=== PATIENT | male | born 1955 | race Caucasian/White ===

== ENCOUNTER 2016-12-03 11:38 | Outpatient (CLI) | payer BC ==
[2016-12-03 12:29] LABS: BASOPHILS % (AUTO) 0.5 %; EOSINOPHILS # (AUTO) 0.1 10^3/uL (0.0-0.7); EOSINOPHILS % (AUTO) 0.8 %; HCT - HEMATOCRIT 44.1 % (42.0-52.0); HGB - HEMOGLOBIN 14.5 g/dL (14.0-18.0); LYMPHOCYTES # (AUTO) 1.3 10^3/uL (1.5-3.5); LYMPHOCYTES % (AUTO) 12.9 %; MEAN CORPUSCULAR HEMOGLOBIN 27.9 pg (27.0-31.0); MEAN CORPUSCULAR HGB CONC 32.9 g/dL (32.0-36.0); MEAN CORPUSCULAR VOLUME 84.9 fL (80.0-94.0); MEAN PLATELET VOLUME 7.1 fL (7.4-11.4); MONOCYTES # (AUTO) 0.8 10^3/uL (0.0-1.0); MONOCYTES % (AUTO) 8.1 %; NEUTROPHILS # (AUTO) 7.9 10^3/uL (1.5-6.6); NEUTROPHILS % (AUTO) 77.7 %; NUCLEATED RED BLOOD CELLS AUTO 0.1 /100WBC; RED BLOOD COUNT 5.19 10^6/uL (4.70-6.10); RED CELL DISTRIBUTION WIDTH 20.4 % (12.0-15.0); UNCORRECTED WHITE BLOOD COUNT 10.1 x10^3/uL; WHITE BLOOD COUNT 10.1 x10^3/uL (4.8-10.8)
[2016-12-03 12:33] LABS: PLATELET ESTIMATE, MANUAL NORMAL (130-450,000) (NORMAL); PLATELET MORPHOLOGY NORMAL APPEARANCE (NORMAL)
[2016-12-03 12:42] LABS: ALBUMIN/GLOBULIN RATIO 1.3 (1.0-2.2); BILIRUBIN,TOTAL 0.6 mg/dL (0.2-1.0); BUN - BLOOD UREA NITROGEN 13 mg/dL (6-20); CALCIUM 9.1 mg/dL (8.5-10.3); CARBON DIOXIDE - CO2 22 mmol/L (21-32); CHLORIDE 105 mmol/L (101-111); CHOL/HDL RATIO 3.2 (<5.0); CHOLESTEROL 139 mg/dL; CREATININE 1.2 mg/dL (0.6-1.2); GFR - MDRD 62 (>89); GLUCOSE 101 mg/dL (70-100); HDL CHOLESTEROL 43 mg/dL; LDL/HDL RATIO 0.4 (<3.6); POTASSIUM 4.6 mmol/L (3.5-5.0); SODIUM 136 mmol/L (135-145); TOTAL PROTEIN 6.5 g/dL (6.7-8.2); TRIGLYCERIDES 397 mg/dL; VLDL CHOLESTEROL 79 mg/dL
== END 2016-12-03 11:39 | disposition home or self-care (01) ==
LOC: LAB 11:38
PROVIDERS: ATTEND Family Medicine
DX: Z87.438 Personal history of other diseases of male genital organs (principal); E78.5 Hyperlipidemia, unspecified; I51.9 Heart disease, unspecified; K70.0 Alcoholic fatty liver; Z11.59 Encounter for screening for other viral diseases
CPT/HCPCS: 36415; 80053; 80061; 84153; 85025; 86803

== ENCOUNTER 2017-12-24 21:55 | Emergency (ER) | payer BC ==
[2017-12-24] MEDS ORDERED: SODIUM CHLORIDE 0.9% 1,000 ML IV ONE (22:20)
[2017-12-24 22:33] LABS: BASOPHILS % (AUTO) 1.2 %; EOSINOPHILS % (AUTO) 1.3 %; HGB - HEMOGLOBIN 14.3 g/dL (14.0-18.0); MEAN CORPUSCULAR HEMOGLOBIN 29.2 pg (27.0-31.0); MEAN CORPUSCULAR HGB CONC 33.6 g/dL (32.0-36.0); MEAN PLATELET VOLUME 7.4 fL (7.4-11.4); MONOCYTES % (AUTO) 11.1 %; NEUTROPHILS % (AUTO) 55.4 %; PLT - PLATELET COUNT 170 10^3/uL (130-450); RED BLOOD COUNT 4.88 10^6/uL (4.70-6.10); RED CELL DISTRIBUTION WIDTH 18.5 % (12.0-15.0); WHITE BLOOD COUNT 4.7 x10^3/uL (4.8-10.8)
[2017-12-24 22:43] LABS: ABNORMAL LYMPHS % (MANUAL) 0 %; BAND NEUTROPHILS % (MANUAL) 0 %
[2017-12-24] MEDS ORDERED: ACETAMINOPHEN 500 MG TABLET PO STA (22:45)
[2017-12-24 22:54] LABS: ALBUMIN 3.5 g/dL (3.2-5.5); ALBUMIN/GLOBULIN RATIO 1.3 (1.0-2.2); BILIRUBIN,TOTAL 0.8 mg/dL (0.2-1.0); CALCIUM 8.6 mg/dL (8.5-10.3); CREATININE 1.3 mg/dL (0.6-1.2); MAGNESIUM 1.9 mg/dL (1.7-2.8); TOTAL PROTEIN 6.2 g/dL (6.7-8.2)
[2017-12-24 23:06] LABS: EOSINOPHILS # (MANUAL) 0.1 10^3/uL (0-0.7); LYMPHOCYTES # (MANUAL) 1.6 10^3/uL (1.5-3.5); LYMPHOCYTES % (MANUAL) 33 %; MONOCYTES # (MANUAL) 0.3 10^3/uL (0.0-1.0); NEUTROPHILS # (MANUAL) 2.7 10^3/uL (1.5-6.6); NEUTROPHILS % (MANUAL) 58 %
[2017-12-24 23:07] LABS: DIFFERENTIAL COMMENT MANUAL DIFFERENTIAL; PLATELET ESTIMATE, MANUAL NORMAL (130-450,000) (NORMAL); PLATELET MORPHOLOGY NORMAL APPEARANCE (NORMAL)
--- NOTE | 2017-12-24 23:17 | CT Report ---
Procedure Date: 12/24/2017 Accession Number: [id number] / [id number] Procedure: CT - Head W/O CPT Code: FULL RESULT: EXAM: CT HEAD EXAM DATE: 12/24/2017 10:16 PM. CLINICAL HISTORY: Fall, head injury, pt takes eliquis. COMPARISON: Prior head CT 04/21/2016. TECHNIQUE: Multiaxial CT images were obtained from the foramen magnum to the vertex. Reformats: Sagittal and coronal. IV contrast: None. In accordance with CT protocol optimization, one or more of the following dose reduction techniques were utilized for this exam: automated exposure control, adjustment of mA and/or KV based on patient size, or use of iterative reconstructive technique. FINDINGS: Parenchyma: No intraparenchymal hemorrhage. No evidence of mass, midline shift, or CT findings of infarction. Baker-white differentiation is distinct. Extraaxial Spaces: Normal for age. No subdural or epidural collections identified. Ventricles: Normal in size and position. Sinuses and Orbits: Imaged paranasal sinuses, orbits, and mastoids show no significant abnormality. Bones: No evidence of fracture or calvarial defect. Other: None. IMPRESSION: Normal head CT. RADIA
--- NOTE | 2017-12-25 00:32 | ED Physician Documentation ---
PD HPI SYNCOPE - Stated complaint Stated Complaint: LIGHTHEADED - Chief complaint Chief Complaint: Neuro - History obtained from History obtained from: Patient, Family - History of Present Illness Witnessed: Witnessed Timing - onset: Today Duration: Seconds Preceding symptoms: None Associated symptoms: Headache. No: Seizure, Incontinant of urine, Incontinant of stool, Vision changes, Chest pain Injury occurred: Fell, Head injury Similar symptoms before: Work up / diagnostics, Treatment Recently seen: Not recently seen - Additional information Additional information: patient is a 62 year old male with a history of copd, cad A fib and frequent syncopal episodes who is presenting to the emergency department after having a syncopal episode. patient states that he had just finished dinner and was walking back to the kitchen when he passed out. Patient fell hitting his head ( he is on elequis). Daughter states that the was out for maybe 15 seconds. patient states that currently he has a headache but denies any other complaints. Review of Systems Ten Systems: 10 systems reviewed and negative Constitutional: denies: Fever, Chills Eyes: denies: Decreased vision, Photophobia Cardiac: denies: Chest pain / pressure, Palpitations, Pedal edema Respiratory: reports: Wheezing. denies: Dyspnea, Cough GI: denies: Nausea, Vomiting Neurologic: reports: Syncope, Headache, LOC Immunocompromised: denies: Immunocompromised PD PAST MEDICAL HISTORY - Past Medical History Past Medical History: Yes Cardiovascular: Hypertension, Coronary artery disease, Atrial fibrillation, Other Respiratory: Other Endocrine/Autoimmune: None GI: GI bleed, Colon polyps, Hemorrhoids, Other : Nocturia, Other HEENT: None, Other Psych: Depression, Other Musculoskeletal: None Derm: None - Past Surgical History Past Surgical History: Yes General: Colonoscopy, EGD Ortho: Carpal Tunnel surgery Cardiovascular: Coronary stent - Present Medications Home Medications: Ambulatory Orders Medication Instructions Recorded Confirmed Atorvastatin [Lipitor] 20 mg PO DAILY 04/21/15 04/22/16 Omeprazole [PriLOSEC] 40 mg PO DAILY 04/21/15 04/22/16 Tamsulosin [Flomax] 0.4 mg PO DAILY 04/21/15 04/22/16 Venlafaxine HCl [Effexor Xr] 150 mg PO DAILY 04/21/15 04/22/16 Aspirin [Aspirin EC] 162 mg PO DAILY 04/22/16 04/22/16 Metoprolol Tartrate 25 mg PO BID 04/22/16 04/22/16 Zolpidem Tartrate [Zolpidem 12.5 mg PO QPM 04/22/16 04/22/16 Tartrate ER] clonazePAM [Klonopin] 1 mg PO BID 04/22/16 04/22/16 oxyCODONE [Roxicodone] 5 mg PO QID 04/22/16 04/22/16 risperiDONE [Risperdal] 2 mg PO DAILY 04/22/16 04/22/16 Zolpidem [Ambien] 10 mg PO QPM tablet 04/23/16 clonazePAM [KlonoPIN] 1 mg PO BID tablet 04/23/16 - Allergies Allergies/Adverse Reactions: Allergies Allergy/AdvReac Type Severity Reaction Status Date / Time niacin Allergy Anaphylaxis Verified 01/01/16 00:18 ibuprofen AdvReac Unknown Verified 01/01/16 00:18 - Social History Does the pt smoke?: Yes Smoking Status: Current every day smoker Does the pt drink ETOH?: Yes ETOH Use: Beer Does the pt have substance abuse?: No - Immunizations Immunizations are current?: Yes - POLST Patient has POLST: No PD ED PE NORMAL - Vitals Vital signs reviewed: Yes - General General: Alert and oriented X 3, No acute distress - HEENT HEENT: PERRL, Moist mucous membranes - Neck Neck: Supple, no meningeal sign, No bony TTP - Respiratory Respiratory: No respiratory distress - Abdomen Abdomen: Soft, Non tender, Non distended - Derm Derm: Normal color, Warm and dry - Extremities Extremities: No deformity, No edema, No calf tenderness / cord - Neuro Neuro: Alert and oriented X 3, c architect 2-12 intact, No motor deficit, No sensory deficit, Normal speech Eye Opening: Spontaneous Motor: Obeys Commands Verbal: Oriented GCS Score: 15 PD ED PE EXPANDED - Cardiac Cardiac: Irregularly irregular Results - Vitals Vitals: Vital Signs - 24 hr 12/24/17 12/24/17 12/24/17 22:03 22:24 22:36 Temperature 35.9 C L Heart Rate 95 98 96 Respiratory 18 20 23 Rate Blood Pressure 109/69 128/80 111/68 O2 Saturation 98 97 96 12/24/17 12/24/17 12/24/17 22:53 23:19 23:39 Temperature Heart Rate 103 H 88 100 Respiratory 23 24 21 Rate Blood Pressure 110/62 138/70 H 125/62 O2 Saturation 97 97 97 12/24/17 12/25/17 23:59 00:36 Temperature 36.7 C Heart Rate 89 91 Respiratory 23 16 Rate Blood Pressure 130/62 124/63 O2 Saturation 96 97 Oxygen O2 Source Room air - EKG (time done) 2206 Rate: Rate (enter#) (111) Rhythm: Atrial fibrillation [place]: Normal Intervals: Normal NM QRS: Normal Compare to prior EKG: Changed from prior EKG - Labs Labs: Laboratory Tests 12/24/17 12/24/17 12/24/17 22:20 22:20 22:20 WBC 4.7 L RBC 4.88 Hgb 14.3 Hct 42.5 MCV 87.0 MCH 29.2 MCHC 33.6 RDW 18.5 H Plt Count 170 MPV 7.4 Neut # (Auto) Not Reportable Lymph # (Auto) Not Reportable [place] # (Auto) Not Reportable Eos # (Auto) Not Reportable Baso # (Auto) Not Reportable Absolute Nucleated RBC Not Reportable Total Counted 100 Band Neuts % (Manual) 0 Abnorm Lymph % (Manual) 0 Nucleated RBC % Not Reportable Neutrophils # (Manual) 2.7 Lymphocytes # (Manual) 1.6 Monocytes # (Manual) 0.3 Eosinophils # (Manual) 0.1 Basophils # (Manual) 0.0 Differential Comment MANUAL DIFFERENTIAL Platelet Estimate NORMAL (130-450,000) Platelet Morphology NORMAL APPEARANCE RBC Morph Micro Appear 2+ POIKILOCYTOSIS Sodium 134 L Potassium 3.7 Chloride 102 Carbon Dioxide 18 L Anion Gap 14.0 H BUN 13 Creatinine 1.3 H Estimated GFR (MDRD) 56 L Glucose 143 H Calcium 8.6 Phosphorus 2.0 L Magnesium 1.9 Total Bilirubin 0.8 AST 26 ALT 16 Alkaline Phosphatase 56 Troponin I < 0.04 Total Protein 6.2 L Albumin 3.5 Globulin 2.7 Albumin/Globulin Ratio 1.3 Lipase 53 H 12/25/17 00:00 WBC RBC Hgb Hct MCV MCH MCHC RDW Plt Count MPV Neut # (Auto) Lymph # (Auto) [place] # (Auto) Eos # (Auto) Baso # (Auto) Absolute Nucleated RBC Total Counted Band Neuts % (Manual) Abnorm Lymph % (Manual) Nucleated RBC % Neutrophils # (Manual) Lymphocytes # (Manual) Monocytes # (Manual) Eosinophils # (Manual) Basophils # (Manual) Differential Comment Platelet Estimate Platelet Morphology RBC Morph Micro Appear Sodium Potassium Chloride Carbon Dioxide Anion Gap BUN Creatinine Estimated GFR (MDRD) Glucose Calcium Phosphorus Magnesium Total Bilirubin AST ALT Alkaline Phosphatase Troponin I < 0.04 Total Protein Albumin Globulin Albumin/Globulin Ratio Lipase - Rads (name of study) ct head Radiology: Final report received (no acute abnormality) PD MEDICAL DECISION MAKING - ED course Complexity details: reviewed old records, reviewed results, re-evaluated patient , considered differential, d/w patient ED course: Patient was seen and examined at bedside. ekg was performed and showed a fib. patient was placed on a monitor. labs were drawn and imaging was ordered. Patient was treated with tylenol for his headache. patient's heart rate varied but was mainly near 80bpm. When patient returned from imaging results were reviewed. there were no acute abnormalities. Patient's other diagnostics were within normal limits. Patient remained asymptomatic while in the emergency department. Patient required no further work up and was stable for discharge with outpatient follow up. - Sepsis Event Vital Signs: Vital Signs - 24 hr 12/24/17 12/24/17 12/24/17 22:03 22:24 22:36 Temperature 35.9 C L Heart Rate 95 98 96 Respiratory 18 20 23 Rate Blood Pressure 109/69 128/80 111/68 O2 Saturation 98 97 96 12/24/17 12/24/17 12/24/17 22:53 23:19 23:39 Temperature Heart Rate 103 H 88 100 Respiratory 23 24 21 Rate Blood Pressure 110/62 138/70 H 125/62 O2 Saturation 97 97 97 12/24/17 12/25/17 23:59 00:36 Temperature 36.7 C Heart Rate 89 91 Respiratory 23 16 Rate Blood Pressure 130/62 124/63 O2 Saturation 96 97 Oxygen O2 Source Room air Departure - Departure Disposition: 01 Home, Self Care Clinical Impression: Syncope and collapse Condition: Good Instructions: ED Fainting Unkn Cause Follow-Up: Dionisio Ashby MD [Primary Care Provider] - Comments: Your diagnostics today were within normal limits. there were no significant abnormalities appreciated. You should follow up with your doctor if your symptoms persist. You may return to the emergency department at any time for new, worsening or uncontrollable symptoms. Discharge Date/Time: 12/25/17 00:48
[2017-12-25 00:37] VITALS: BP 124/63
== END 2017-12-25 00:48 | disposition home or self-care (01) ==
LOC: ED 21:55
DX: R55 Syncope and collapse (principal); J44.9 Chronic obstructive pulmonary disease, unspecified; I25.10 Atherosclerotic heart disease of native coronary artery without angina pectoris; I48.91 Unspecified atrial fibrillation; I11.9 Hypertensive heart disease without heart failure; F17.200 Nicotine dependence, unspecified, uncomplicated; Z79.01 Long term (current) use of anticoagulants
CPT/HCPCS: 36415; 70450; 80053; 83690; 83735; 84100; 84484; 85025; 93005; 96360; 99284; 99285; A9270

== ENCOUNTER 2018-01-24 11:16 | Outpatient (CLI) | payer BC ==
[2018-01-24 16:43] LABS: CHOL/HDL RATIO 4.6 (<5.0); CHOLESTEROL 161 mg/dL; HDL CHOLESTEROL 35 mg/dL
[2018-01-24 17:14] LABS: LDL CHOLESTEROL,DIRECT 56 mg/dL; LDLD/HDL RATIO 1.6 (<3.6)
== END 2018-01-24 11:17 | disposition home or self-care (01) ==
LOC: LAB.R 11:16
PROVIDERS: ATTEND Internal Medicine
DX: E78.5 Hyperlipidemia, unspecified (principal)
CPT/HCPCS: 80061; 83721

== ENCOUNTER 2018-02-02 13:37 | Outpatient (CLI) | payer BC | END 2018-02-02 13:38 | disposition home or self-care (01) | LOC: RT 13:37 | PROVIDERS: ATTEND Internal Medicine Cardiovascular Disease | DX: I48.91 Unspecified atrial fibrillation (principal) | CPT/HCPCS: 93005 ==

== ENCOUNTER 2018-02-27 14:36 | Emergency (ER) | payer BC ==
[2018-02-27 14:45] VITALS: BP 114/61
[2018-02-27] MEDS ORDERED: oxyCODONE 5 MG TABLET PO STA (15:04)
--- NOTE | 2018-02-27 15:07 | ED Physician Documentation ---
PD HPI LOWER EXT INJURY - Stated complaint Stated Complaint: L FT PX - Chief complaint Chief Complaint: Ext Problem - History obtained from History obtained from: Patient, Family - History of Present Illness PD HPI LOW EXT INJURY LOCATION: Left (Couple of weeks ago he had pain in the plantar fascia and was walking funny. That went away but now has pain across the top medial side of the foot that is especially bad when he starts lifting his foot with each step. No increase in activities or injury.) Review of Systems Constitutional: denies: Fever, Chills GI: denies: Abdominal Pain, Nausea, Vomiting Musculoskeletal: reports: Back pain (Chronic). denies: Neck pain PD PAST MEDICAL HISTORY - Past Medical History Past Medical History: No Cardiovascular: Hypertension, Coronary artery disease, Atrial fibrillation, Oth er Respiratory: Other Endocrine/Autoimmune: None GI: GI bleed, Colon polyps, Hemorrhoids, Other : Nocturia, Other HEENT: None, Other Psych: Depression, Other Musculoskeletal: None Derm: None - Past Surgical History Past Surgical History: Yes General: Colonoscopy, EGD Ortho: Carpal Tunnel surgery Cardiovascular: Coronary stent - Present Medications Home Medications: Ambulatory Orders Medication Instructions Recorded Confirmed Atorvastatin [Lipitor] 20 mg PO DAILY 04/21/15 04/22/16 Omeprazole [PriLOSEC] 40 mg PO DAILY 04/21/15 04/22/16 Tamsulosin [Flomax] 0.4 mg PO DAILY 04/21/15 04/22/16 Venlafaxine HCl [Effexor Xr] 150 mg PO DAILY 04/21/15 04/22/16 Aspirin [Aspirin EC] 162 mg PO DAILY 04/22/16 04/22/16 Metoprolol Tartrate 25 mg PO BID 04/22/16 04/22/16 Zolpidem Tartrate [Zolpidem 12.5 mg PO QPM 04/22/16 04/22/16 Tartrate ER] clonazePAM [Klonopin] 1 mg PO BID 04/22/16 04/22/16 oxyCODONE [Roxicodone] 5 mg PO QID 04/22/16 04/22/16 risperiDONE [Risperdal] 2 mg PO DAILY 04/22/16 04/22/16 Zolpidem [Ambien] 10 mg PO QPM tablet 04/23/16 clonazePAM [KlonoPIN] 1 mg PO BID tablet 04/23/16 Morphine Ir [Ms Ir] 15 mg PO Q6H PRN #15 tablet 02/27/18 predniSONE [Prednisone] 60 mg PO DAILY 5 Days #15 tablet 02/27/18 - Allergies Allergies/Adverse Reactions: Allergies Allergy/AdvReac Type Severity Reaction Status Date / Time niacin Allergy Anaphylaxis Verified 02/27/18 14:45 ibuprofen AdvReac Unknown Verified 02/27/18 14:45 - Social History Does the pt smoke?: Yes Smoking Status: Current every day smoker Does the pt drink ETOH?: Yes Does the pt have substance abuse?: No - Immunizations Immunizations are current?: Yes - POLST Patient has POLST: No PD ED PE NORMAL - Vitals Vital signs reviewed: Yes - General General: Alert and oriented X 3, No acute distress - Extremities Extremities: Other (Left foot is without tenderness of the plantar fascia at this time, he says though that a couple of weeks ago palpating his plantar fascia would have been very tender. He is tender over the top of the foot which tracks the FHL tendon and has severe pain with flexion of the big toe but not with extension of the big toe.) - Neuro Neuro: Alert and oriented X 3, Normal speech Results - Vitals Vitals: Vital Signs - 24 hr 02/27/18 14:42 Temperature 35.9 C L Heart Rate 86 Respiratory 16 Rate Blood Pressure 114/61 O2 Saturation 99 Oxygen O2 Source Room air PD MEDICAL DECISION MAKING - ED course ED course: 62-year-old gentleman with reactive FHL tendinitis of the left foot. He is p laced in a boot and given a small prescription of morphine. And prednisone noting that he cannot take anti-inflammatories because of chronic renal insufficiency. Departure - Departure Disposition: 01 Home, Self Care Clinical Impression: Flexor hallucis longus tendinitis Condition: Good Record reviewed to determine appropriate education?: Yes Instructions: ED Tendinitis Calcific Prescriptions: Morphine Ir [Ms Ir] 15 mg PO Q6H PRN #15 tablet PRN Reason: Pain predniSONE [Prednisone] 60 mg PO DAILY 5 Days #15 tablet Comments: Call Dr. garcia's office and let him know that you were here and that we did give you a prescription. Return for new or worsening symptoms.
== END 2018-02-27 15:27 | disposition home or self-care (01) ==
LOC: ED 14:36
DX: M77.52 Other enthesopathy of left foot and ankle (principal); I12.9 Hypertensive chronic kidney disease with stage 1 through stage 4 chronic kidney disease, or unspecified chronic kidney disease; N18.9 Chronic kidney disease, unspecified; I25.10 Atherosclerotic heart disease of native coronary artery without angina pectoris; F17.200 Nicotine dependence, unspecified, uncomplicated; Z95.5 Presence of coronary angioplasty implant and graft; Z79.82 Long term (current) use of aspirin
CPT/HCPCS: 99283; A9270

== ENCOUNTER 2018-04-09 18:46 | Emergency (ER) | payer BC ==
[2018-04-09 18:53] VITALS: BP 104/51
--- NOTE | 2018-04-09 19:10 | ED Physician Documentation ---
PD HPI LOWER EXT INJURY - Stated complaint Stated Complaint: BILAT FEET PX - Chief complaint Chief Complaint: Ext Problem - History obtained from History obtained from: Patient - History of Present Illness PD HPI LOW EXT INJURY LOCATION: Right, Left, Toe (great toe base, also dorsum right foot.) Type of injury: No: Fall, Twist Timing - onset: How many days ago (2 days of pain without obvious injury) Timing - duration: Days (2) Timing - details: Gradual onset, Still present Improved by: No: Rest Worsened by: Moving, Palpating Associated symptoms: Discolored (redness at base great toes). No: Weakness, Numbness Similar symptoms before: No diagnosis (has had similar at times in the past, lasting few days at a time, at great toes. Has not had both feet hurt and is worse than other times.) Recently seen: Not recently seen Review of Systems Constitutional: denies: Fever, Chills Nose: denies: Rhinorrhea / runny nose, Congestion Throat: denies: Sore throat Respiratory: denies: Cough Skin: denies: Abrasion (s), Laceration (s) Neurologic: denies: Focal weakness, Numbness PD PAST MEDICAL HISTORY - Past Medical History Cardiovascular: Hypertension, Coronary artery disease, Atrial fibrillation, Other Respiratory: Other Endocrine/Autoimmune: None GI: GI bleed, Colon polyps, Hemorrhoids, Other : Nocturia, Other HEENT: None, Other Psych: Depression, Other Musculoskeletal: None Derm: None - Past Surgical History Past Surgical History: Yes General: Colonoscopy, EGD Ortho: Carpal Tunnel surgery Cardiovascular: Coronary stent - Present Medications Home Medications: Ambulatory Orders Medication Instructions Recorded Confirmed Atorvastatin [Lipitor] 20 mg PO DAILY 04/21/15 04/22/16 Omeprazole [PriLOSEC] 40 mg PO DAILY 04/21/15 04/22/16 Tamsulosin [Flomax] 0.4 mg PO DAILY 04/21/15 04/22/16 Venlafaxine HCl [Effexor Xr] 150 mg PO DAILY 04/21/15 04/22/16 Aspirin [Aspirin EC] 162 mg PO DAILY 04/22/16 04/22/16 Metoprolol Tartrate 25 mg PO BID 04/22/16 04/22/16 Zolpidem Tartrate [Zolpidem 12.5 mg PO QPM 04/22/16 04/22/16 Tartrate ER] clonazePAM [Klonopin] 1 mg PO BID 04/22/16 04/22/16 oxyCODONE [Roxicodone] 5 mg PO QID 04/22/16 04/22/16 risperiDONE [Risperdal] 2 mg PO DAILY 04/22/16 04/22/16 Zolpidem [Ambien] 10 mg PO QPM tablet 04/23/16 clonazePAM [KlonoPIN] 1 mg PO BID tablet 04/23/16 Morphine Ir [Ms Ir] 15 mg PO Q6H PRN #15 tablet 02/27/18 predniSONE [Prednisone] 60 mg PO DAILY 5 Days #15 tablet 02/27/18 Colchicine [Colcrys] 0.6 mg PO BID #10 tablet 04/09/18 Dexamethasone [Decadron] 4 mg PO DAILY #5 tablet 04/09/18 - Allergies Allergies/Adverse Reactions: Allergies Allergy/AdvReac Type Severity Reaction Status Date / Time niacin Allergy Anaphylaxis Verified 04/09/18 18:50 ibuprofen AdvReac Unknown Verified 04/09/18 18:50 - Social History Does the pt smoke?: Yes Smoking Status: Current every day smoker Does the pt drink ETOH?: Yes Does the pt have substance abuse?: No - Immunizations Immunizations are current?: Yes - POLST Patient has POLST: No PD ED PE NORMAL - Vitals Vital signs reviewed: Yes - General General: Alert and oriented X 3, No acute distress, Well developed/nourished - Cardiac Cardiac: RRR, No murmur - Respiratory Respiratory: Clear bilaterally - Abdomen Abdomen: Soft, Non tender - Derm Derm: Warm and dry. No: Normal color (both great toe MTPs medially with redness and marked pain. Bit more swelling right. Dorsum right foot with tenderness and mild redness as well. No skin sores. ) Results - Vitals Vitals: Oxygen O2 Source Room air PD MEDICAL DECISION MAKING - ED course Complexity details: considered differential (pain with redness both great toes MTPs and dorsum right foot. C/W gout.), d/w patient Departure - Departure Disposition: 01 Home, Self Care Clinical Impression: Pain in both feet Gout attack Qualifiers: Gout site: toe Gout etiology: unspecified cause Laterality: unspecified laterality Qualified Code(s): M10.9 - Gout, unspecified Condition: Stable Record reviewed to determine appropriate education?: Yes Instructions: ED Arthritis Gout Follow-Up: Dionisio Ashby MD [Primary Care Provider] - Prescriptions: Colchicine [Colcrys] 0.6 mg PO BID #10 tablet Dexamethasone [Decadron] 4 mg PO DAILY #5 tablet Comments: This sounds like a gout episode. We would treat this with anti-inflammatories anti-gout medicine and pain medicine. Continue your usual pain medication. Add Decadron steroid anti-inflammatory for 5 more days. Colchicine is a gout medication and helps with the inflammation and crystals. Use it twice daily for 5 days as well. This should improve over the next 1-2 days. Subsequently follow-up with Dr. Ashby as there is potentially medication to take daily to head off the episodes, since you have had a few of these in the past. Discharge Date/Time: 04/09/18 20:55
[2018-04-09] MEDS ORDERED: HYDROmorphone 2 MG/ML VIAL IM STA (19:45)
[2018-04-09] MEDS ORDERED: COLCHICINE 0.6 MG TABLET PO STA (19:45)
[2018-04-09] MEDS ORDERED: DEXAMETHASONE 10 MG/ML VIAL PO STA (19:45)
[2018-04-09] MEDS: KETOROLAC 15 MG/ML VIAL IVP STA ×2 (20:20→20:24)
[2018-04-09] MEDS ORDERED: KETOROLAC 15 MG/ML VIAL IM STA (20:20)
== END 2018-04-09 20:55 | disposition home or self-care (01) ==
LOC: ED 18:46
DX: M10.9 Gout, unspecified (principal); I10 Essential (primary) hypertension; I25.10 Atherosclerotic heart disease of native coronary artery without angina pectoris; Z86.79 Personal history of other diseases of the circulatory system; Z95.5 Presence of coronary angioplasty implant and graft; F17.200 Nicotine dependence, unspecified, uncomplicated
CPT/HCPCS: 96372; 99281; 99283; A9270; J1170

== ENCOUNTER 2018-05-13 19:30 | Outpatient (CLI) | payer BC | END 2018-05-13 23:59 | disposition home or self-care (01) | LOC: SC 19:30 | PROVIDERS: ATTEND Internal Medicine Pulmonary Disease | DX: G47.33 Obstructive sleep apnea (adult) (pediatric) (principal) | CPT/HCPCS: 95806 ==

== ENCOUNTER 2018-06-06 08:00 | Outpatient (CLI) | payer BC ==
[2018-06-06 17:16] LABS: BASOPHILS # (AUTO) 0.1 10^3/uL (0.0-0.1); BASOPHILS % (AUTO) 0.9 %; EOSINOPHILS # (AUTO) 0.1 10^3/uL (0.0-0.7); EOSINOPHILS % (AUTO) 0.8 %; HGB - HEMOGLOBIN 14.7 g/dL (14.0-18.0); LYMPHOCYTES # (AUTO) 1.4 10^3/uL (1.5-3.5); LYMPHOCYTES % (AUTO) 20.5 %; MEAN CORPUSCULAR HEMOGLOBIN 28.8 pg (27.0-31.0); MEAN CORPUSCULAR HGB CONC 32.2 g/dL (32.0-36.0); MEAN CORPUSCULAR VOLUME 89.4 fL (80.0-94.0); MEAN PLATELET VOLUME 7.6 fL (7.4-11.4); MONOCYTES # (AUTO) 0.4 10^3/uL (0.0-1.0); MONOCYTES % (AUTO) 6.2 %; NEUTROPHILS # (AUTO) 4.9 10^3/uL (1.5-6.6); NEUTROPHILS % (AUTO) 71.6 %; PLT - PLATELET COUNT 158 10^3/uL (130-450); RED BLOOD COUNT 5.11 10^6/uL (4.70-6.10); RED CELL DISTRIBUTION WIDTH 18.7 % (12.0-15.0); WHITE BLOOD COUNT 6.9 x10^3/uL (4.8-10.8)
== END 2018-06-06 23:59 | disposition home or self-care (01) ==
LOC: LAB.R 08:00
PROVIDERS: ATTEND Internal Medicine
DX: D64.9 Anemia, unspecified (principal)
CPT/HCPCS: 85025

== ENCOUNTER 2018-06-12 18:08 | Emergency (ER) | payer BC ==
[2018-06-12 18:37] VITALS: BP 110/70
[2018-06-12] MEDS ORDERED: MORPHINE IR 15 MG TABLET PO STA (19:21)
[2018-06-12] MEDS ORDERED: predniSONE 20 MG TABLET PO STA (19:22)
--- NOTE | 2018-06-12 19:25 | ED Physician Documentation ---
History of Present Illness - Stated complaint Stated Complaint: NK PX - Chief complaint Chief Complaint: General - History obtained from History obtained from: Patient, Family - History of Present Illness Timing: How many days ago (2) Pain level max: 9 Pain level now: 9 - Additonal information Additional information: R sided neck pain and R great toe pain. Patient states that he has ongoing right-sided neck pain after waking up with a spasm in his neck a few days ago. Took Flexeril without relief. Is on oxycodone at home but continuing to have breakthrough pain. Is unable to take NSAIDs secondary to only having one kidney. He also states that his right great toe is swollen, has had gout in this toe before. Feels similar to that. The neck is better with rest and worse with movement. At the toe is also better with rest and worse with movement Review of Systems Constitutional: denies: Fever, Chills Nose: denies: Rhinorrhea / runny nose, Congestion Throat: denies: Sore throat Cardiac: denies: Chest pain / pressure GI: denies: Vomiting, Diarrhea Skin: denies: Rash Musculoskeletal: denies: Back pain Neurologic: denies: Focal weakness, Numbness, Confused, Headache, Head injury PD PAST MEDICAL HISTORY - Past Medical History Past Medical History: Yes Cardiovascular: Hypertension, Coronary artery disease, Atrial fibrillation, Other Respiratory: None Neuro: CVA Endocrine/Autoimmune: None GI: GI bleed, Colon polyps, Hemorrhoids, Other : Nocturia, Other HEENT: None, Other Psych: Depression, Anxiety Musculoskeletal: None Derm: None - Past Surgical History Past Surgical History: Yes General: Colonoscopy, EGD, Other Ortho: Other Cardiovascular: Coronary stent - Present Medications Home Medications: Ambulatory Orders Medication Instructions Recorded Confirmed Atorvastatin [Lipitor] 20 mg PO DAILY 04/21/15 04/22/16 Omeprazole [PriLOSEC] 40 mg PO DAILY 04/21/15 04/22/16 Tamsulosin [Flomax] 0.4 mg PO DAILY 04/21/15 04/22/16 Venlafaxine HCl [Effexor Xr] 150 mg PO DAILY 04/21/15 04/22/16 Aspirin [Aspirin EC] 162 mg PO DAILY 04/22/16 04/22/16 Metoprolol Tartrate 25 mg PO BID 04/22/16 04/22/16 Zolpidem Tartrate [Zolpidem 12.5 mg PO QPM 04/22/16 04/22/16 Tartrate ER] clonazePAM [Klonopin] 1 mg PO BID 04/22/16 04/22/16 oxyCODONE [Roxicodone] 5 mg PO QID 04/22/16 04/22/16 risperiDONE [Risperdal] 2 mg PO DAILY 04/22/16 04/22/16 Zolpidem [Ambien] 10 mg PO QPM tablet 04/23/16 clonazePAM [KlonoPIN] 1 mg PO BID tablet 04/23/16 Morphine Ir [Ms Ir] 15 mg PO Q6H PRN #15 tablet 02/27/18 predniSONE [Prednisone] 60 mg PO DAILY 5 Days #15 tablet 02/27/18 Colchicine [Colcrys] 0.6 mg PO BID #10 tablet 04/09/18 Dexamethasone [Decadron] 4 mg PO DAILY #5 tablet 04/09/18 Methocarbamol [Robaxin] 500 mg PO Q8H PRN #10 tablet 06/12/18 Morphine Ir [Ms Ir] 15 mg PO Q6H PRN #10 tablet 06/12/18 predniSONE [Prednisone] 40 mg PO DAILY #10 tablet 06/12/18 - Allergies Allergies/Adverse Reactions: Allergies Allergy/AdvReac Type Severity Reaction Status Date / Time niacin Allergy Anaphylaxis Verified 06/12/18 18:37 ibuprofen AdvReac Unknown Verified 06/12/18 18:37 - Social History Does the pt smoke?: Yes Smoking Status: Current every day smoker Does the pt drink ETOH?: Yes ETOH Use: Beer Does the pt have substance abuse?: No - Immunizations Immunizations are current?: Yes - POLST Patient has POLST: No PD ED PE NORMAL - Vitals Vital signs reviewed: Yes - General General: Alert and oriented X 3, No acute distress, Well developed/nourished - HEENT HEENT: PERRL, Moist mucous membranes - Neck Neck: Supple, no meningeal sign, No bony TTP, No bruit, Other (Tender to palpation right paracervical, spasm present. Reproduces pain) - Cardiac Cardiac: RRR, Strong equal pulses - Respiratory Respiratory: No respiratory distress, Clear bilaterally - Back Back: No spinal TTP - Derm Derm: Warm and dry - Extremities Extremities: Other (Right great toe - Mild erythema and swelling to the first MTP joint. Pain with range of motion. Neurovascular intact) - Neuro Neuro: Alert and oriented X 3 - Psych Psych: Normal mood, Normal affect Results - Vitals Vitals: Vital Signs - 24 hr 06/12/18 18:31 Temperature 36.2 C L Heart Rate 61 Respiratory 16 Rate Blood Pressure 110/70 O2 Saturation 97 Oxygen O2 Source Room air PD MEDICAL DECISION MAKING - ED course Complexity details: reviewed results, re-evaluated patient, considered differential, d/w patient, d/w family ED course: 63-year-old male presents the emergency department with what appears to be an acute gout flare of the right foot. Will place on prednisone for this as he cannot take NSAIDs. Also has spasm in his neck, will place on pain medication and muscle relaxants for home. He is well-appearing, nontoxic. Afebrile. No evidence of meningitis, carotid dissection. Patient counseled regarding signs and symptoms for which I believe and urgent re-evaluation would be necessary. Patient with good understanding of and agreement to plan and is comfortable going home at this time This document was made in part using voice recognition software. While efforts are made to proofread this document, sound alike and grammatical errors may occur. Departure - Departure Disposition: 01 Home, Self Care Clinical Impression: Neck muscle spasm Gout attack Qualifiers: Gout site: toe Gout etiology: unspecified cause Laterality: right Qualified Code(s): M10.9 - Gout, unspecified Condition: Good Instructions: ED Arthritis Gout, ED Spasm Neck No Injury, ED Diet Gout Follow-Up: Dionisio Ashby MD [Primary Care Provider] - Within 1 week Prescriptions: Methocarbamol [Robaxin] 500 mg PO Q8H PRN #10 tablet PRN Reason: spasm Morphine Ir [Ms Ir] 15 mg PO Q6H PRN #10 tablet PRN Reason: neck pain predniSONE [Prednisone] 40 mg PO DAILY #10 tablet Comments: Take medications as prescribed. Return if you worsen. This should improve over the next few days. Follow-up with your doctor for further care. Do not drink alcohol or drive while on narcotic pain medicine. Note that many narcotic pain relievers also contain tylenol/acetaminophen. Please ensure that your total dose of acetaminophen from all sources does not exceed 3 grams (3000mg) per day. You may constipated on this medication, take a stool softener such as "Colace" twice a day while you are on it. Also recommend a [id number] laxative such as senna or MiraLAX any day that you do not have a bowel movement. If you received narcotic pain medication in the emergency department, do not drive or operate machinery for the next 24 hours. This document was made in part using voice recognition software. While efforts are made to proofread this document, sound alike and grammatical errors may occur. Discharge Date/Time: 06/12/18 19:32
== END 2018-06-12 19:32 | disposition home or self-care (01) ==
LOC: ED 18:08
DX: M62.838 Other muscle spasm (principal); M54.2 Cervicalgia; M10.9 Gout, unspecified; I10 Essential (primary) hypertension; F17.200 Nicotine dependence, unspecified, uncomplicated; Z79.82 Long term (current) use of aspirin
CPT/HCPCS: 99283; A9270; J7512

== ENCOUNTER 2018-07-04 12:58 | Outpatient (CLI) | payer BC | END 2018-07-04 12:59 | disposition home or self-care (01) | LOC: SC 12:58 | PROVIDERS: ATTEND Internal Medicine Pulmonary Disease | DX: G47.33 Obstructive sleep apnea (adult) (pediatric) (principal) | CPT/HCPCS: 99212; 99213 ==

== ENCOUNTER 2019-05-07 18:01 | Outpatient (CLI) | payer BC ==
[2019-05-07 18:22] LABS: BASOPHILS % (AUTO) 0.5 %; EOSINOPHILS # (AUTO) 0.1 10^3/uL (0.0-0.7); EOSINOPHILS % (AUTO) 1.1 %; HGB - HEMOGLOBIN 14.3 g/dL (14.0-18.0); LYMPHOCYTES # (AUTO) 1.7 10^3/uL (1.5-3.5); LYMPHOCYTES % (AUTO) 26.9 %; MEAN CORPUSCULAR HEMOGLOBIN 27.8 pg (27.0-31.0); MEAN CORPUSCULAR HGB CONC 31.7 g/dL (32.0-36.0); MEAN CORPUSCULAR VOLUME 87.6 fL (80.0-94.0); MEAN PLATELET VOLUME 8.6 fL (7.4-11.4); MONOCYTES # (AUTO) 0.6 10^3/uL (0.0-1.0); MONOCYTES % (AUTO) 10.4 %; NEUTROPHILS # (AUTO) 3.7 10^3/uL (1.5-6.6); NEUTROPHILS % (AUTO) 60.8 %; PLT - PLATELET COUNT 140 10^3/uL (130-450); RED BLOOD COUNT 5.15 10^6/uL (4.70-6.10); RED CELL DISTRIBUTION WIDTH 14.6 % (12.0-15.0); WHITE BLOOD COUNT 6.1 x10^3/uL (4.8-10.8)
[2019-05-07 18:41] LABS: ALBUMIN 4.2 g/dL (3.2-5.5); ALBUMIN/GLOBULIN RATIO 1.5 (1.0-2.2); ALKALINE PHOSPHATASE 73 IU/L (42-121); ALT ALANINE AMINOTRANSFERASE 25 IU/L (10-60); AST ASPARTATE AMINOTRANSFERASE 20 IU/L (10-42); BILIRUBIN,TOTAL 0.6 mg/dL (0.2-1.0); BUN - BLOOD UREA NITROGEN 12 mg/dL (6-20); CALCIUM 9.3 mg/dL (8.5-10.3); CARBON DIOXIDE - CO2 28 mmol/L (21-32); CHLORIDE 101 mmol/L (101-111); CHOL/HDL RATIO 2.7 (<5.0); CHOLESTEROL 108 mg/dL; DIGOXIN 0.4 ng/mL; GFR - MDRD 76 (>89); GLUCOSE 92 mg/dL (70-100); HDL CHOLESTEROL 40 mg/dL; LDL CHOLESTEROL,CALCULATED 48 mg/dL; LDL/HDL RATIO 1.2 (<3.6); SODIUM 137 mmol/L (135-145); VLDL CHOLESTEROL 20 mg/dL
== END 2019-05-07 18:02 | disposition home or self-care (01) ==
LOC: LAB 18:01
PROVIDERS: ATTEND Family Medicine
DX: G47.9 Sleep disorder, unspecified (principal); K21.9 Gastro-esophageal reflux disease without esophagitis; F11.20 Opioid dependence, uncomplicated; I48.91 Unspecified atrial fibrillation; I25.10 Atherosclerotic heart disease of native coronary artery without angina pectoris; E78.5 Hyperlipidemia, unspecified; I10 Essential (primary) hypertension
CPT/HCPCS: 36415; 80053; 80061; 80162; 83721; 85025

== ENCOUNTER 2020-07-31 15:45 | Outpatient (CLI) | payer BC ==
[2020-07-31 18:00] LABS: BASOPHILS % (AUTO) 0.4 %; EOSINOPHILS # (AUTO) 0.1 10^3/uL (0.0-0.7); EOSINOPHILS % (AUTO) 1.7 %; HCT - HEMATOCRIT 46.7 % (42.0-52.0); HGB - HEMOGLOBIN 14.6 g/dL (14.0-18.0); LYMPHOCYTES # (AUTO) 1.5 10^3/uL (1.5-3.5); LYMPHOCYTES % (AUTO) 21.8 %; MEAN CORPUSCULAR HEMOGLOBIN 27.2 pg (27.0-31.0); MEAN CORPUSCULAR HGB CONC 31.3 g/dL (32.0-36.0); MEAN PLATELET VOLUME 9.4 fL (7.4-11.4); MONOCYTES # (AUTO) 0.7 10^3/uL (0.0-1.0); MONOCYTES % (AUTO) 9.6 %; NEUTROPHILS # (AUTO) 4.5 10^3/uL (1.5-6.6); NEUTROPHILS % (AUTO) 66.2 %; PLT - PLATELET COUNT 186 10^3/uL (130-450); RED BLOOD COUNT 5.37 10^6/uL (4.70-6.10); RED CELL DISTRIBUTION WIDTH 14.7 % (12.0-15.0); WHITE BLOOD COUNT 6.9 x10^3/uL (4.8-10.8)
[2020-07-31 18:21] LABS: ALBUMIN/GLOBULIN RATIO 1.5 (1.0-2.2); ALKALINE PHOSPHATASE 74 IU/L (42-121); ALT ALANINE AMINOTRANSFERASE 23 IU/L (10-60); AST ASPARTATE AMINOTRANSFERASE 17 IU/L (10-42); BILIRUBIN,TOTAL 0.3 mg/dL (0.2-1.0); BUN - BLOOD UREA NITROGEN 10 mg/dL (6-20); CALCIUM 9.6 mg/dL (8.5-10.3); CARBON DIOXIDE - CO2 27 mmol/L (21-32); CHLORIDE 105 mmol/L (101-111); CHOL/HDL RATIO 2.9 (<5.0); CHOLESTEROL 120 mg/dL; DIGOXIN 0.3 ng/mL; GFR - MDRD 75 (>89); GLUCOSE 107 mg/dL (70-100); HDL CHOLESTEROL 42 mg/dL; LDL CHOLESTEROL,CALCULATED 35 mg/dL; LDL/HDL RATIO 0.8 (<3.6); SODIUM 140 mmol/L (135-145); TOTAL PROTEIN 6.6 g/dL (6.7-8.2); TRIGLYCERIDES 213 mg/dL; VLDL CHOLESTEROL 43 mg/dL
[2020-07-31 18:25] LABS: THYROID STIMULATING HORMONE 2.19 uIU/mL (0.34-5.60)
== END 2020-07-31 23:59 | disposition home or self-care (01) ==
LOC: LAB.WCP 15:45
PROVIDERS: ATTEND Family Medicine
DX: I48.91 Unspecified atrial fibrillation (principal); D64.9 Anemia, unspecified; K21.9 Gastro-esophageal reflux disease without esophagitis; N40.0 Benign prostatic hyperplasia without lower urinary tract symptoms; F32.9 Major depressive disorder, single episode, unspecified; G47.33 Obstructive sleep apnea (adult) (pediatric); E78.5 Hyperlipidemia, unspecified; I25.10 Atherosclerotic heart disease of native coronary artery without angina pectoris; I10 Essential (primary) hypertension
CPT/HCPCS: 36415; 80053; 80061; 80162; 83721; 84153; 84443; 85025

== ENCOUNTER 2020-11-18 15:44 | Outpatient (CLI) | payer BC ==
[2020-11-18 18:08] LABS: CREATININE 1.1 mg/dL (0.6-1.2); POTASSIUM 4.3 mmol/L (3.5-5.0)
== END 2020-11-18 15:45 | disposition home or self-care (01) ==
LOC: LAB.WCP 15:44
PROVIDERS: ATTEND Family Medicine
DX: R91.8 Other nonspecific abnormal finding of lung field (principal)
CPT/HCPCS: 36415; 80048

== ENCOUNTER 2021-01-06 12:05 | Outpatient (CLI) | payer BC ==
[2021-01-06 12:33] LABS: CREATININE 1.2 mg/dL (0.6-1.2)
[2021-01-06] MEDS ORDERED: GADOBUTROL 15 MMOL/15 ML VIAL ONE (12:52)
--- NOTE | 2021-01-06 14:14 | MRI Report ---
PROCEDURE: Brain W/WO INDICATIONS: LUNG CA CONTRAST: IV CONTRAST: Gadavist ml: 12.5 TECHNIQUE: Noncontrast axial T1 spin echo, axial T2 fast spin echo, sagittal and axial FLAIR, coronal T2 fast sp in echo, axial gradient echo, axial diffusion and ADC through the brain. After the administration of contrast, axial and coronal T1 spin echo with fat saturation through the brain. COMPARISON: Head CT 12/24/2017. FINDINGS: Image quality: Excellent. CSF spaces: Basal cisterns are patent. No extra-axial fluid collections. Ventricles are normal in size and shape. Brain: No midline shift. No intracranial bleeds or masses. No abnormal intracranial enhancement. There is cerebral volume loss for age. There is periventricular white matter chronic small vessel is chemic change. The brainstem appears normal. Diffusion-weighted images demonstrate no acute ischemi c insults. No chronic ischemic insults. Normal intravascular flow voids are present. Skull and face: Calvarial marrow is normal in signal. Orbits appear normal. Sinuses: Sinuses and mastoids appear clear. IMPRESSION: No evidence of intracranial metastatic disease. Mild global cerebral line loss and chron ic microvessel ischemic changes. Reviewed by: James Lane MD on 01/06/2021 2:13 PM PDT Approved by: James Lane MD on 01/06/2021 2:13 PM PDT Station ID: [id number]
[2021-01-06] MEDS ORDERED: GADOBUTROL 15 MMOL/15 ML VIAL IVP ONE (15:50)
== END 2021-01-06 12:06 | disposition home or self-care (01) ==
LOC: LAB 12:05
PROVIDERS: ATTEND Internal Medicine Hematology & Oncology
DX: C34.11 Malignant neoplasm of upper lobe, right bronchus or lung (principal); G31.89 Other specified degenerative diseases of nervous system; I67.82 Cerebral ischemia
CPT/HCPCS: 36415; 70553; 82565; A9585

== ENCOUNTER 2021-01-18 13:34 | Outpatient (CLI) | payer BC ==
[2021-01-18] MEDS ORDERED: ALBUTEROL 1 PUFF INH STA (15:31)
== END 2021-01-18 13:35 | disposition home or self-care (01) ==
LOC: RT 13:34
PROVIDERS: ATTEND Internal Medicine Hematology & Oncology
DX: C34.11 Malignant neoplasm of upper lobe, right bronchus or lung (principal)
CPT/HCPCS: 94060; 94375; 94729